=== PATIENT | male | born 1990 | race Caucasian/White ===

== ENCOUNTER 2020-05-08 16:52 | Emergency (ER) | payer OTHER, SELFPAY ==
--- NOTE | 2020-05-08 17:11 | ED.GENADULT ---
HPI - General Adult General Chief complaint: Abdominal Pain Stated complaint: Abd Pain/CP Time Seen by Provider: 05/08/20 17:14 Source: patient Mode of arrival: ambulatory Limitations: no limitations History of Present Illness HPI narrative: 29 year old male patient presents to [facility] care iw c/o abdominal pain and epigastric pain x 2 days. Pt states it got increasly worse today and he had to call into work. Pt states he has been eating spicy food and ETOH the last couple of days. Pt states he tried drinking milk and taking pepto for his symptoms. Last normal BM was today. Pt reports diarrhea over the weekend. Nurse had to get patient from car to come into clinic and patient was eating Rallys in car. Denies fevers, N/V. denies SOB or CP. Related Data Home Medications Medication Instructions Recorded Confirmed No Home Medications 05/08/20 05/08/20 Allergies Allergy/AdvReac Type Severity Reaction Status Date / Time No Known Allergies Allergy Verified 05/08/20 17:22 Review of Systems Review of Systems: All systems reviewed & are unremarkable except as noted in HPI and below Constitutional: Constitutional: Reports as per HPI Eyes: Eyes: Reports no additional eye complaints ENT: Reports system reviewed and no additional complaints, except as documented Cardiovascular: Cardiovascular: Reports no additional cardiovascular complaints Respiratory: Respiratory: Reports no additional respiratory complaints Gastrointestinal: Gastrointestinal: Reports abdominal pain, Reports diarrhea and Reports nausea Genitourinary: Genitourinary: Reports no additional male genitourinary complaints Comments: denies pain with urination Musculoskeletal: Musculoskeletal: Reports no additional musculoskeletal complaints Integumentary/Breasts: Skin/Breast: Reports system reviewed and no additional complaints, except as docu Neurologic: Reports system reviewed and no additional complaints, except as documented Psychiatric: Psychiatric: Reports no additional psychiatric complaints Endocrine: Endocrine: Reports no additional endocrine complaints Hematologic/Lymphatic: Hematologic/Lymphatic: Reports no additional hematologic/lymphatic complaints Allergic/Immunologic: Allergic/Immunologic: Reports no additional allergic/immunologic complaints [facility] Past Medical History Medical History (Updated 05/08/20 @ 17:35 by RONALDO Hahn) Fracture L clavicle Exam Const: General: alert Orientation/consciousness: patient oriented x3 Limitations: physical limitations (limping on walking to room) HENMT: Head: normal to inspection Eyes: Pupils: Equal, round and reactive pupils present Neck: Neck: normal visual inspection Chest: Chest palpation & inspection: normal inspection of the chest Resp: Effort & Inspection: normal respiratory effort Cardio: Rate: regular rate Rhythm: regular rhythm GI: GI Palp: Yes Soft to palpation, Yes Tenderness to palpation present (GI), Yes Guarding due to palpation present (GI) and Yes Rebound tenderness present Percussion: Yes normal to percussion Auscultation: normal bowel sounds Other: bowel sounds hyperactive in all quadrants. Rebound tenderness on RLQ on deep palpation. slight epigastic tenderness. Soft, nondistention. : Testes: Testes normal Back/Spine/Pelvis: Back: no CVA tenderness Skin: General skin exam: normal color Neuro: General: patient oriented x3 Extrem: General: normal to inspection Psych: Mental Status: mental status grossly normal Course Vital Signs Vital signs: Vital Signs Temperature 37.2 C 05/08/20 17:12 Pulse Rate 69 05/08/20 17:12 Respiratory Rate 20 05/08/20 17:12 Blood Pressure 124/70 05/08/20 17:12 Pulse Oximetry 97 05/08/20 17:12 Temperature 37.2 C 05/08/20 17:12 Pulse Rate 69 05/08/20 17:12 Respiratory Rate 20 05/08/20 17:12 Blood Pressure 124/70 05/08/20 17:12 Pulse Oximetry 97 05/08/20 17:12 vital
[2020-05-08 17:12] VITALS: BP 124/70; PULSE 69; RESP 20; TEMP 37.2; O2SAT 97
== END 2020-05-08 17:36 | disposition short-term general hospital (02) ==
PROVIDERS: Emergency Provider Nurse Practitioner Family
DX: R10.823 Right lower quadrant rebound abdominal tenderness (principal)
CPT/HCPCS: 99212; G0463

== ENCOUNTER 2022-01-11 11:55 | Emergency (ER) | payer OTHER, SELFPAY ==
[2022-01-11 12:00] VITALS: BP 146/91; PULSE 96; RESP 14; TEMP 36.3; O2SAT 100
--- NOTE | 2022-01-11 12:18 | ED.GENADULT ---
HPI - General Adult General Chief complaint: Unspecified Stated complaint: Hemorroid Time Seen by Provider: 01/11/22 12:18 History of Present Illness HPI narrative: Patient presents with a history of hemorrhoids. Patient states he has had for more than normal stools lately and has aggravated his hemorrhoids. Patient denies any blood in his stool no bleeding from the hemorrhoids. Patient is not taking anything [id number] for symptoms Related Data Allergies Allergy/AdvReac Type Severity Reaction Status Date / Time No Known Allergies Allergy Verified 01/11/22 12:11 Review of Systems Review of Systems: CONSTITUTIONAL: Denies fever, chills, or sweats. EYES: Denies visual changes, redness, or discharge. ENT: Denies rhinorrhea, congestion, sore throat, or otalgia. CARDIOVASCULAR: Denies chest pain, palpitations, or edema. RESPIRATORY: Denies cough or dyspnea. GASTROINTESTINAL: Denies abdominal pain, nausea, vomiting, or diarrhea. GENITOURINARY: Denies dysuria or hematuria. SKIN: Denies rash or itching. MUSCULOSKELETAL: Denies back pain, joint pain, or myalgia. NEUROLOGIC: Denies headache, numbness, or weakness. PSYCHIATRIC: Denies anxiety or depression. [facility] Past Medical History Medical History (Updated 01/11/22 @ 12:27 by RONALDO Campbell) Fracture L clavicle Comments At time of signature, agree with nursing past medical, surgical, social and family history. There is no relevant family history pertinent to the presenting complaint Exam Narrative: GENERAL: Well-appearing, well-nourished, and in no acute distress. HEAD: Normocephalic, atraumatic. EYES: PERRLA and EOMI. ENT: Nares clear, no rhinorrhea or epistaxis. Mucous membranes moist. NECK: Supple. CHEST: Clear to auscultation. No respiratory distress. HEART: Regular rate and rhythm. No murmur heard. Normal peripheral pulses. ABDOMEN: Soft, nontender, nondistended, normal active bowel sounds. rectal: hemorrhoid 3 0clock tender non sclerosed EXTREMITIES: Normal range of motion. No edema. SKIN: Warm, dry, no rash. NEURO: No focal deficits. Alert and oriented x3. Ruy Coma Scale Eye Opening: Spontaneous 4 Ruy Coma Scale Motor: Obeys Commands 6 Holden Coma Scale Verbal: Oriented 5 Ruy Coma Scale Total 15 Course Course Level of Care: Express Care Visit Vital Signs Vital signs: Vital Signs Temperature 36.3 C L 01/11/22 12:00 Pulse Rate 96 01/11/22 12:00 Respiratory Rate 14 01/11/22 12:00 Blood Pressure 146/91 H 01/11/22 12:00 Pulse Oximetry 100 01/11/22 12:00 Oxygen Delivery Room Air 01/11/22 12:00 Temperature 36.3 C L 01/11/22 12:00 Pulse Rate 96 01/11/22 12:00 Respiratory Rate 14 01/11/22 12:00 Blood Pressure 146/91 H 01/11/22 12:00 Pulse Oximetry 100 01/11/22 12:00 Oxygen Delivery Room Air 01/11/22 12:00 Please ANTOINE schedule a followup visit with your personal physician for further evaluation and treatment. Including recheck and discussion of your blood pressure. If your symptoms persist, change or worsen significantly before you can contact your personal physician then please, without delay, go to the emergency department for further evaluation Medical Decision Making Differential Diagnosis Differential Diagnosis: Hemorrhoids Vital Signs Vital Signs: Vital Signs Temperature 36.3 C L 01/11/22 12:00 Pulse Rate 96 01/11/22 12:00 Respiratory Rate 14 01/11/22 12:00 Blood Pressure 146/91 H 01/11/22 12:00 Pulse Oximetry 100 01/11/22 12:00 Oxygen Delivery Room Air 01/11/22 12:00 Temperature 36.3 C L 01/11/22 12:00 Pulse Rate 96 01/11/22 12:00 Respiratory Rate 14 01/11/22 12:00 Blood Pressure 146/91 H 01/11/22 12:00 Pulse Oximetry 100 01/11/22 12:00 Oxygen Delivery Room Air 01/11/22 12:00 Discharge Plan Discharge Clinical Impression: External hemorrhoid Patient Disposition: Home, Self-Care Condition: Stable Instructions: Jamie
== END 2022-01-11 12:38 | disposition home or self-care (01) ==
PROVIDERS: Emergency Provider Nurse Practitioner Family
DX: K64.4 Residual hemorrhoidal skin tags (principal)
CPT/HCPCS: 99213; G0463

== ENCOUNTER 2023-02-23 10:24 | Emergency (ER) | payer OTHER, SELFPAY ==
[2023-02-23 10:28] VITALS: BP 132/72; PULSE 76; RESP 18; TEMP 36.4; O2SAT 100
--- NOTE | 2023-02-23 10:37 | ED.GENADULT ---
HPI - General Adult General Chief complaint: Skin/Abscess/Foreign Body Stated complaint: poss Cyst on Back/pain down arm Source: patient Mode of arrival: ambulatory Limitations: no limitations History of Present Illness HPI narrative: 32 y/o male presented for c/o painful red bump to right upper back. Worsening for 3 days. Reports some acne to the back, and may have picked at an area before it got inflamed. Rates pain 5/10. Has applied PRID and heat, and lightly poked it with a hot needle without much drainage. Denies n/v/d/f/c. Related Data Allergies Allergy/AdvReac Type Severity Reaction Status Date / Time No Known Allergies Allergy Verified 02/23/23 10:41 Review of Systems Review of Systems: CONSTITUTIONAL: Denies body aches, fever, chills, or sweats. EYES: Denies visual changes, redness, or discharge. ENT: Denies rhinorrhea, congestion CARDIOVASCULAR: Denies chest pain, palpitations, or edema. RESPIRATORY: Denies cough or dyspnea. GASTROINTESTINAL: Denies abdominal pain, nausea, vomiting, or diarrhea. SKIN: reports boil on back MUSCULOSKELETAL: Denies back pain, joint pain, or myalgia. NEUROLOGIC: Denies headache, numbness, tingling, or weakness. [facility] Past Medical History Medical History Fracture L clavicle Social History Social History (Updated 02/23/23 @ 11:35 by Penny Harp APRN) Smoking packs per day: 0.5 Smoking cigarettes per day: 10.0 Smoking status: Current every day smoker Tobacco type: cigarettes Substance use type: marijuana Comments At time of signature, I have reviewed and agree with nursing past medical, surgical, social and family history unless otherwise noted. Please see nursing chart for further information. There is no relevant family history pertinent to the presenting complaint Exam Narrative: GENERAL: Well-appearing HEAD: Normocephalic, atraumatic. EYES: conjunctivae clear, and EOMI. ENT: Mucous membranes moist. Oropharynx without edema, erythema or lesions. NECK: Supple. No lymphadenopathy CHEST: Clear to auscultation. HEART: Regular rate and rhythm. SKIN: Warm, dry. right upper back abscess approx [id number] area of induration, tender, warm; center with scabbed purulent drainage. NEURO: Alert and oriented x3. Course Course Emergency Course: Patient is aware of diagnosis, understands and agrees to treatment plan. Anticipatory guidance given. Patient agrees to follow-up as directed and is aware of reasons to seek care at the emergency department. Portions of this record may have been created with voice recognition software Level of Care: Express Care Visit Vital Signs Vital signs: Vital Signs Temperature 97.6 F 02/23/23 10:28 Pulse Rate 76 02/23/23 10:28 Respiratory Rate 18 02/23/23 10:28 Blood Pressure 132/72 02/23/23 10:28 Pulse Oximetry 100 02/23/23 10:28 Oxygen Delivery Room Air 02/23/23 10:28 Temperature 97.6 F 02/23/23 10:28 Pulse Rate 76 02/23/23 10:28 Respiratory Rate 18 02/23/23 10:28 Blood Pressure 132/72 02/23/23 10:28 Pulse Oximetry 100 02/23/23 10:28 Oxygen Delivery Room Air 02/23/23 10:28 Reviewed Procedures Abscess I/D back: Date of Incision: 02/23/23 Local Anesthetic: lidocaine 1% and with epi Amount of anesthesia used (mL): 2 Technique: incised with #11 blade Irrigation: Yes (60mL) Packing used?: none I&D Results: Pus (small amount) and Blood Abcess I&D Additional Comments: The procedure and its alternatives were reviewed with patient. Risks were reviewed with patient including infection and damage to nearby structures. Patient provided verbal informed consent. The patient was positioned appropriately. Local anesthesia achieved. Single straight Incision made to center of most fluctuant area. Small amount of thick purulent discharge expelled with manual press
== END 2023-02-23 11:20 | disposition home or self-care (01) ==
PROVIDERS: Emergency Provider Nurse Practitioner Family
DX: L02.212 Cutaneous abscess of back [any part, except buttock and flank] (principal); B95.62 Methicillin resistant Staphylococcus aureus infection as the cause of diseases classified elsewhere; F17.210 Nicotine dependence, cigarettes, uncomplicated; F12.90 Cannabis use, unspecified, uncomplicated
CPT/HCPCS: 10060; 87070; 87075; 87147; 87181; 87186; 87205; 99213; G0463